=== PATIENT | female | born 1950 | race Two or more races ===

== ENCOUNTER 2017-12-31 18:01 | Inpatient (IN) | payer MEDICARE ==
[2017-12-31] MEDS ORDERED: IPRATROPIUM/ALBUTEROL 0.5-2.5 MG/3 ML AMPUL NEB ONE (18:36)
[2017-12-31] MEDS ORDERED: ASPIRIN 81 MG TABLET, CHEWABLE PO ONE (18:54)
[2017-12-31] MEDS ORDERED: METHYLPREDNISOLONE INJ 125 MG/2 ML SDV IV ONE (18:54)
--- NOTE | 2017-12-31 18:58 | ER Document Report ---
ED Cardiac - General Chief Complaint: Cough Stated Complaint: COUGH Time Seen by Provider: 12/31/17 18:41 Mode of Arrival: Ambulatory Information source: Patient, Relative TRAVEL OUTSIDE OF THE [place] IN LAST 30 DAYS: No - HPI Patient complains to provider of: Shortness of breath Notes: Patient is here with son and [id number] at the bedside. The daughter-in- law has interpreted for the patient. The patient is acceptable of this being done. Patient lives in [place]. She is here visiting her family. They recently returned from a 9 hour flight from [place] about 6 days ago. Since that time the patient has had a cough and felt short of breath and had chest tightness. Patient has a long history of asthma. States that she has had to be admitted to the hospital for asthma in the past. She has been wheezing and coughing. She has felt like she has had a fever, but has not actually taken her temperature. She does complain of some bilateral lower extremity pain but denies any swelling. She denies any hormone use, smoking, cancer, history of DVT or PE. She denies any history of hypertension, high cholesterol, diabetes, drug use, smoking, CAD. The patient denies any other complaints at this time. Nothing seems to make her symptoms better or worse. - Related Data Allergies/Adverse Reactions: No Known Allergies Allergy (Unverified 09/17/14 16:46) Past Medical History - Social History Smoking Status: Never Smoker Family History: Reviewed & Not Pertinent Pulmonary Medical History: Reports: Hx Asthma - severe - Immunizations Hx Diphtheria, Pertussis, Tetanus Vaccination: Yes Review of Systems - Review of Systems -: Yes All other systems reviewed and negative Physical Exam - Vital signs Vitals: Temp Pulse Resp BP Pulse Ox 99.0 F 100 18 151/75 H 91 L 12/31/17 18:08 12/31/17 18:08 12/31/17 18:08 12/31/17 18:08 12/31/17 18:08 - Notes Notes: GENERAL: alert, cooperative, nontoxic, no distress. HEAD: normocephalic, atraumatic EYES: conjunctiva pink without discharge, no external redness or swelling. EARS: no external swelling, no external redness NOSE: atraumatic, no external swelling MOUTH/THROAT: mucous membranes moist and pink, posterior pharynx without erythema, swelling, exudate. No trismus or drooling. NECK: soft, supple, full range of motion, no meningismus. CHEST: no distress, lungs clear and equal throughout. Expiratory wheezing throughout. Good air movement. No crackles. No stridor. No increased work of breathing. CARDIAC: regular rate and rhythm, no murmur, normal capillary refill, normal pulses. No peripheral edema noted. ABDOMEN: Soft, nontender. BACK: full range of motion, no CVA tenderness. EXTREMITIES: full range of motion of all extremities. No redness, no swelling. Mild tenderness to palpation of bilateral calves. No redness, swelling, mass. Normal pulse and sensation distally. NEURO: alert and oriented x 3, no focal deficits, full range of motion of all extremities. PYSCH: appropriate mood, affect. Patient is cooperative. SKIN: pink, warm, dry, no rash. Course - Re-evaluation Re-evalutation: 12/31/17 21:31 Patient is nontoxic appearing with stable vitals. Patient states she is feeling somewhat better at this time. Patient apparently was hypoxic into the upper 80s prior to having [address] nasal cannula. She was satting 96% on 4 L nasal cannula. I have removed her oxygen and we will reassess her O2 level to determine ultimate disposition. Patient continues to have some mild expiratory wheezing throughout. No respiratory distress. 12/31/17 22:26 Patient is nontoxic-appearing with vitals stable aside from times of hypoxia. Patient is noted to occasionally drop down to 85% on room air. She was placed back on 4 L nasal cannula and is satting in the mid 90s. Patient arrived with complaints of cough with shortness of breath and chest tightness. She has no CAD risk factors. She does have a history of asthma. Patient did have a recent flight from [place] which was approximately 9 hours. She was complaining of some pain in her bilateral lower extremities. She had no swelling noted on exam. Patient has no other PE risk factors, she is not have cancer, she is not on hormones, she has had no prior DVT or PE. Venous Doppler of the bilateral lower extremities was negative. D-dimer was negative as well. Chest x-ray shows no acute abnormalities. EKG is negative. Troponin is negative. Patient states that she was feeling better after her breathing treatments but she does continue to have some expiratory wheezing. Due to the fact that the patient continues to be hypoxic when on room air, I believe it would be best for her to be admitted to the hospital for asthma exacerbation to ensure that she is improving and not worsening. Patient was given Solu-Medrol in the emergency department. I will discuss the case with the hospitalist for admission to the hospital. 12/31/17 22:35 Discussed the case with Dr. Ca the overnight hospitalist. He does not believe that the patient needs to be admitted to the hospital at this time based on the vital signs that were charted in the chart. Vital signs in the chart at this time her from her initial triage vital signs. The patient was noted to be hypoxic in the mid 80s on my exam. States that he would like an ABG to be obtained. I HAVE TakEN the patient back off of her oxygen and we will obtain an ABG. 12/31/17 23:[address] Ca with blood gas results showing PO2 of 66. No answer at this time. Will attempt to call back. 12/31/17 23:[address] Ca, he has accepted the patient to a telemetry OBS. - Vital Signs Vital signs: Temp Pulse Resp BP Pulse Ox 98.0 F 91 24 H 134/64 H 89 L 12/31/17 22:47 12/31/17 22:47 12/31/17 22:47 12/31/17 22:47 12/31/17 22:47 - Laboratory Result Diagrams: 12/31/17 19:20 12/31/17 19:20 Laboratory results interpreted by me: 12/31/17 12/31/17 12/31/17 19:20 19:20 23:15 Eosinophils % 6.9 H ABG pO2 66.2 L ABG HCO3 27.7 H ABG Total CO2 29.0 H ABG O2 Saturation 93.4 L Glucose 118 H - Diagnostic Test Radiology reviewed: Image reviewed, Reports reviewed - Negative chest x-ray - EKG Interpretation by Me EKG shows normal: Sinus rhythm, Mathews, Intervals, QRS Complexes, ST-T Waves Rate: Normal When compared to previous EKG there are: Previous EKG unavailable Discharge - Discharge Clinical Impression: Hypoxia Asthma exacerbation Qualifiers: Asthma severity: moderate Asthma persistence: unspecified Qualified Code(s): J45.901 - Unspecified asthma with (acute) exacerbation Dyspnea Qualifiers: Dyspnea type: unspecified Qualified Code(s): R06.00 - Dyspnea, unspecified Condition: Stable Disposition: ADMITTED OBSERVATION Admitting Provider: Hospitalist Unit Admitted: Telemetry
--- NOTE | 2017-12-31 19:18 | RADIOLOGY REPORT (SQ) ---
EXAM DESCRIPTION: CHEST SINGLE VIEW COMPLETED DATE/TIME: 12/31/2017 7:09 pm REASON FOR STUDY: CP, SOB, WHEEZING, HX OF ASTHMA COMPARISON: None. EXAM PARAMETERS: NUMBER OF VIEWS: One view. TECHNIQUE: Single frontal radiographic view of the chest acquired. RADIATION DOSE: NA LIMITATIONS: None. FINDINGS: LUNGS AND PLEURA: No opacities, masses or pneumothorax. No pleural effusion. MEDIASTINUM AND HILAR STRUCTURES: No masses. Contour normal. HEART AND VASCULAR STRUCTURES: Heart normal in size. Normal vasculature. BONES: No acute findings. HARDWARE: None in the chest. OTHER: No other significant finding. IMPRESSION: NO ACUTE RADIOGRAPHIC FINDING IN THE CHEST. TECHNICAL DOCUMENTATION: JOB ID: [id number] [employer]- All Rights Reserved Reading location - IP/workstation name: [email or web address]
[2017-12-31 19:31] LABS: ABSOLUTE BASOPHILS # (AUTO) 0.1 10^3/uL (0.0-0.2); ABSOLUTE EOSINOPHILS # (AUTO) 0.6 10^3/uL (0.0-0.6); ABSOLUTE LYMPHOCYTES (AUTO) 1.8 10^3/uL (0.5-4.7); ABSOLUTE MONOCYTES (AUTO) 0.5 10^3/uL (0.1-1.4); ABSOLUTE NEUT (AUTO) 5.1 10^3/uL (1.7-8.2); BASOPHILS % (AUTO) 0.9 % (0-2); EOSINOPHILS % (AUTO) 6.9 % (0-6); HEMATOCRIT 39.2 % (36.0-47.0); HEMOGLOBIN 13.2 g/dL (12.0-15.5); LYMPHOCYTES % (AUTO) 22.8 % (13-45); MEAN CORPUSCULAR HEMOGLOBIN 29.6 pg (27.0-33.4); MEAN CORPUSCULAR HGB CONC 33.6 g/dL (32.0-36.0); MEAN CORPUSCULAR VOLUME 88 fl (80-97); PLATELET COUNT 247 10^3/uL (150-450); RED BLOOD COUNT 4.46 10^6/uL (3.72-5.28); RED CELL DISTRIBUTION WIDTH 13.9 % (11.5-14.0); SEGMENTED NEUTROPHILS % (AUTO) 63.4 % (42-78); TOTAL CELLS COUNTED % (AUTO) 100 %
[2017-12-31 19:51] LABS: ALANINE AMINOTRANSFERASE 27 U/L (9-52); ALBUMIN 3.9 g/dL (3.5-5.0); ALKALINE PHOSPHATASE 74 U/L (38-126); ANION GAP 11 (5-19); ASPARTATE AMINO TRANSFERASE 21 U/L (14-36); BILIRUBIN,DIRECT 0.2 mg/dL (0.0-0.4); BILIRUBIN,TOTAL 0.2 mg/dL (0.2-1.3); BLOOD UREA NITROGEN 12 mg/dL (7-20); CALCIUM 9.2 mg/dL (8.4-10.2); CARBON DIOXIDE 27 mmol/L (22-30); CHLORIDE 106 mmol/L (98-107); GLUCOSE 118 mg/dL (75-110); POTASSIUM 3.6 mmol/L (3.6-5.0); SODIUM 144.1 mmol/L (137-145); TOTAL PROTEIN 6.9 g/dL (6.3-8.2)
[2017-12-31 20:03] LABS: NT PRO BNP 16 pg/mL (5-900)
[2017-12-31 20:04] LABS: TROPONIN I < 0.012 ng/mL
--- NOTE | 2017-12-31 21:12 | RADIOLOGY REPORT (SQ) ---
EXAM DESCRIPTION: VENOUS BILATERAL LOWER COMPLETED DATE/TIME: 12/31/2017 9:03 pm REASON FOR STUDY: BILA LEG PAIN, RECENT FLIGHT FROM [place] COMPARISON: None. TECHNIQUE: Dynamic and static perez scale and color images acquired of both lower extremity venous sy stems. Selected spectral images acquired with additional compression and augmentation maneuvers. Imag es stored on PACS. LIMITATIONS: None. FINDINGS: RIGHT LEG COMMON FEMORAL AND FEMORAL: Normal phasicity, compression and augmentation. No visualized echogenic m aterial on perez scale. No defects on color images. POPLITEAL: Normal compression and augmentation. No visualized echogenic material on perez scale. No de fects on color images. CALF VESSELS: Normal compression and augmentation. No visualized echogenic material on perez scale. No defects on color image. GSV AND SSV: Normal compression. No visualized echogenic material on perez scale. No defects on color images. ANY DEEP VENOUS INSUFFICIENCY: Not evaluated. ANY EVIDENCE OF POPLITEAL CYST: No. OTHER: No other significant finding. LEFT LEG COMMON FEMORAL AND FEMORAL: Normal phasicity, compression and augmentation. No visualized echogenic m aterial on perez scale. No defects on color images. POPLITEAL: Normal compression and augmentation. No visualized echogenic material on perez scale. No de fects on color images. CALF VESSELS: Normal compression and augmentation. No visualized echogenic material on perez scale. No defects on color images. GSV AND SSV: Normal compression. No visualized echogenic material on perez scale. No defects on color images. ANY DEEP VENOUS INSUFFICIENCY: Not evaluated. ANY EVIDENCE POPLITEAL CYST: No. OTHER: No other significant finding. IMPRESSION: NO EVIDENCE DVT OR SVT IN EITHER LEG. TECHNICAL DOCUMENTATION: JOB ID: [id number] [employer]- All Rights Reserved Reading location - IP/workstation name: [email or web address]
--- NOTE | 2017-12-31 23:26 | EKG REPORT ---
SEVERITY:- OTHERWISE NORMAL ECG - SINUS RHYTHM LEFT AXIS DEVIATION : Confirmed by: Rusty Mathews MD 31-Dec-2017 23:26:06
[2017-12-31 23:37] LABS: ARTERIAL BLOOD BASE EXCESS 2.8 mmol/L; ARTERIAL BLOOD H2CO3 1.31 mmol/L (1.05-1.35); ARTERIAL BLOOD HCO3 27.7 mmol/L (20-26); ARTERIAL BLOOD O2 SATURATION 93.4 % (94-98); ARTERIAL BLOOD PCO2 43.6 mmHg (35-45); ARTERIAL BLOOD PH 7.42 (7.35-7.45); ARTERIAL BLOOD PO2 66.2 mmHg (80-100)
[2017-12-31 23:39] LABS: ARTERIAL BLOOD FIO2 ROOM AIR
[2018-01-01] MEDS ORDERED: ACETAMINOPHEN 325 MG TABLET PO PRN (00:04)
[2018-01-01] MEDS ORDERED: GUAIFENESIN SYRP 200 MG/10 ML UDC PO PRN (00:04)
[2018-01-01] MEDS ORDERED: IPRATROPIUM/ALBUTEROL 0.5-2.5 MG/3 ML AMPUL NEB PRN (00:04)
[2018-01-01] MEDS ORDERED: CHLORPHENIRAMINE MALEATE 4 MG TABLET PO ONE (00:07)
[2018-01-01] MEDS ORDERED: PREDNISONE 20 MG TABLET PO ONE (01:15)
[2018-01-01] MEDS ORDERED: FLUTICASONE NASAL SPRAY 50 MCG/SPRY 120 SPRAY/16 GM NASL ONE (01:15)
[2018-01-01] MEDS ORDERED: LEVOFLOXACIN 750 MG/D5W RTU 750 MG/150 ML RTUPB IV ONE (02:00)
[2018-01-01] MEDS: IPRATROPIUM/ALBUTEROL 0.5-2.5 MG/3 ML AMPUL NEB SCH ×4 (02:16→20:29)
[2018-01-01] MEDS ORDERED: CHLORPHENIRAMINE MALEATE 4 MG TABLET ONE (05:00)
[2018-01-01] MEDS ORDERED: FLUTICASONE NASAL SPRAY 50 MCG/SPRY 120 SPRAY/16 GM ONE (05:00)
[2018-01-01] MEDS: HEPARIN SOD (PORCINE) 5,000 UNIT/ML 1 ML SYRINGE SUBCUT SCH ×3 (05:10→21:54)
--- NOTE | 2018-01-01 06:47 | PDOC H&P ---
History of Present Illness Admission Date/PCP: 01/01/18 00:21 Patient complains of: Shortness of breath History of Present Illness: HIPOLITO REYNOLDS is a Guinean-speaking 67 year old female with history of COPD, chronic allergic sinusitis with recent flare over the last 6 days requiring ER hospitalization where she is found to have hypoxia and a nonproductive cough. She is referred to the hospitalist for admission. She denies fever chills nausea vomiting or chest pain. She denies recent antibiotic use Past Medical History Pulmonary Medical History: Reports: Asthma - severe, Bronchitis Social History Information Source: Patient Lives with: Alone Smoking Status: Never Smoker Frequency of Alcohol Use: None Drugs: None - Advance Directive Resuscitation Status: Full Code Family History Family History: COPD Parental Family History Reviewed: Yes Children Family History Reviewed: Yes Sibling(s) Family History Reviewed.: Yes Medication/Allergy Home Medications: Albuterol Sulfate [Albuterol Sulfate 2.5mg/3 mL] 1 vial IH Q4 PRN 01/01/18 Loratadine 10 mg PO DAILY 01/01/18 Montelukast Sodium 10 mg PO HSP 01/01/18 Allergies/Adverse Reactions: No Known Allergies Allergy (Unverified 09/17/14 16:46) Review of Systems Constitutional: ABSENT: chills, fever(s), headache(s), weight gain, weight loss Eyes: ABSENT: visual disturbances Ears: ABSENT: hearing changes Cardiovascular: ABSENT: chest pain, dyspnea on exertion, edema, orthropnea, palpitations Respiratory: ABSENT: cough, hemoptysis Gastrointestinal: ABSENT: abdominal pain, constipation, diarrhea, hematemesis, hematochezia, nausea, vomiting Genitourinary: ABSENT: dysuria, hematuria Musculoskeletal: ABSENT: joint swelling Integumentary: ABSENT: rash, wounds Neurological: ABSENT: abnormal gait, abnormal speech, confusion, dizziness, focal weakness, syncope Psychiatric: ABSENT: anxiety, depression, homidical ideation, suicidal ideation Endocrine: ABSENT: cold intolerance, heat intolerance, polydipsia, polyuria Hematologic/Lymphatic: ABSENT: easy bleeding, easy bruising Physical Exam Vital Signs: Temp Pulse Resp BP Pulse Ox 97.5 F 99 17 121/67 98 01/01/18 04:34 01/01/18 04:34 01/01/18 04:34 01/01/18 04:34 01/01/18 04:34 Intake & Output 12/30/17 12/31/17 01/01/18 11:59 11:59 11:59 Intake Total 180 Output Total 100 Balance 80 Weight 70.2 kg General appearance: PRESENT: cooperative, mild distress. ABSENT: disheveled Head exam: PRESENT: atraumatic, normocephalic Eye exam: PRESENT: conjunctiva pink, EOMI, PERRLA. ABSENT: scleral icterus Ear exam: PRESENT: normal external ear exam Mouth exam: PRESENT: moist, tongue midline Neck exam: ABSENT: carotid bruit, JVD, lymphadenopathy, thyromegaly Respiratory exam: PRESENT: accessory muscle use, crackles, prolonged expiratory phas, retraction, wheezes Cardiovascular exam: PRESENT: RRR. ABSENT: diastolic murmur, rubs, systolic murmur Pulses: PRESENT: normal dorsalis pedis pul Vascular exam: PRESENT: normal capillary refill GI/Abdominal exam: PRESENT: normal bowel sounds, soft. ABSENT: distended, guarding, mass, organolmegaly, rebound, tenderness Rectal exam: PRESENT: deferred Extremities exam: PRESENT: full ROM. ABSENT: calf tenderness, clubbing, pedal edema Neurological exam: PRESENT: alert, awake, oriented to person, oriented to place , oriented to time, oriented to situation, CN II-XII grossly intact. ABSENT: motor sensory deficit Psychiatric exam: PRESENT: appropriate affect, normal mood. ABSENT: homicidal ideation, suicidal ideation Skin exam: PRESENT: dry, intact, warm. ABSENT: cyanosis, rash Results Impressions: Chest X-Ray 12/31/17 18:54 IMPRESSION: NO ACUTE RADIOGRAPHIC FINDING IN THE CHEST. Venous Doppler Study 12/31/17 18:54 IMPRESSION: NO EVIDENCE DVT OR SVT IN EITHER LEG. Assessment & Plan - Diagnosis (1) Acute exacerbation of chronic bronchitis Is this a current diagnosis for this admission?: Yes Plan: Treatment of allergic sinusitis, empiric antibiotics, prednisone, flutter valve and incentive spirometry (2) Allergic sinusitis Is this a current diagnosis for this admission?: Yes Plan: Chlorpheniramine, Flonase (3) Asthma exacerbation Qualifiers: Asthma severity: moderate Asthma persistence: unspecified Qualified Code( s): J45.901 - Unspecified asthma with (acute) exacerbation Is this a current diagnosis for this admission?: Yes Plan: Please see #1, albuterol and Atrovent, prednisone initiated (4) Hypoxia Is this a current diagnosis for this admission?: Yes Plan: Supplemental oxygen - Time Time Spent: 30 to 50 Minutes
[2018-01-01] MEDS: FLUTICASONE NASAL SPRAY 50 MCG/SPRY 120 SPRAY/16 GM NASL SCH ×2 (10:23→21:54)
[2018-01-01] MEDS: PREDNISONE 20 MG TABLET PO SCH ×2 (10:23→17:34)
--- NOTE | 2018-01-01 13:47 | PDOC PROGRESS REPORT ---
Subjective Progress Note for:: 01/01/18 Subjective:: 67-year-old Nepali-speaking female admitted overnight for COPD exacerbation. Doing better, breathing better. No chest pain no palpitations. No cough or hemoptysis. Reason For Visit: COPD EXACERBATION ACUTE BRONCHITIS Physical Exam Vital Signs: Temp Pulse Resp BP Pulse Ox 97.5 F 80 16 121/53 L 98 01/01/18 07:31 01/01/18 08:00 01/01/18 08:00 01/01/18 07:31 01/01/18 08:00 Intake & Output 12/31/17 01/01/18 01/02/18 06:59 06:59 06:59 Intake Total 180 Output Total 100 Balance 80 Weight 70.2 kg GEN: NAD, well-developed, well-nourished CV: RRR, NL S1S2 LUNGS: Few diffuse wheezing bilaterally, good air movement ABDOMEN Soft, NT, +BS EXTERMITIES: No e/c/c NEURO: Alert, oriented 3, nonfocal Results Impressions: Chest X-Ray 12/31/17 18:54 IMPRESSION: NO ACUTE RADIOGRAPHIC FINDING IN THE CHEST. Venous Doppler Study 12/31/17 18:54 IMPRESSION: NO EVIDENCE DVT OR SVT IN EITHER LEG. Assessment & Plan - Plan Summary Plan Summary: (1) Acute exacerbation of chronic bronchitis Is this a current diagnosis for this admission?: Yes Plan: Continue treatment of allergic sinusitis, empiric antibiotics, prednisone, flutter valve and incentive spirometry (2) Allergic sinusitis Is this a current diagnosis for this admission?: Yes Plan: Continue chlorpheniramine, Flonase (3) Asthma exacerbation Qualifiers: Asthma severity: moderate Asthma persistence: unspecified Qualified Code( s): J45.901 - Unspecified asthma with (acute) exacerbation Is this a current diagnosis for this admission?: Yes Plan: Please see #1, albuterol and Atrovent, prednisone, supplemental O2 as needed (4) Hypoxia Is this a current diagnosis for this admission?: Yes Plan: Supplemental oxygen
[2018-01-01] MEDS: AZITHROMYCIN 250 MG TABLET PO SCH (15:16)
[2018-01-01] MEDS ORDERED: LEVOFLOXACIN 750 MG/D5W RTU 750 MG/150 ML RTUPB IV SCH (22:00)
[2018-01-02] MEDS: IPRATROPIUM/ALBUTEROL 0.5-2.5 MG/3 ML AMPUL NEB SCH ×3 (02:07→14:23)
[2018-01-02 05:12] LABS: ABSOLUTE LYMPHOCYTES (AUTO) 0.7 10^3/uL (0.5-4.7); ABSOLUTE MONOCYTES (AUTO) 0.5 10^3/uL (0.1-1.4); ABSOLUTE NEUT (AUTO) 9.6 10^3/uL (1.7-8.2); HEMATOCRIT 35.4 % (36.0-47.0); HEMOGLOBIN 11.9 g/dL (12.0-15.5); LYMPHOCYTES % (AUTO) 6.6 % (13-45); MEAN CORPUSCULAR HEMOGLOBIN 29.7 pg (27.0-33.4); MEAN CORPUSCULAR HGB CONC 33.5 g/dL (32.0-36.0); MEAN CORPUSCULAR VOLUME 89 fl (80-97); PLATELET COUNT 258 10^3/uL (150-450); RED BLOOD COUNT 3.99 10^6/uL (3.72-5.28); RED CELL DISTRIBUTION WIDTH 13.8 % (11.5-14.0); SEGMENTED NEUTROPHILS % (AUTO) 88.4 % (42-78); TOTAL CELLS COUNTED % (AUTO) 100 %; WHITE BLOOD COUNT 10.9 10^3/uL (4.0-10.5)
[2018-01-02 05:35] LABS: ANION GAP 12 (5-19); BLOOD UREA NITROGEN 20 mg/dL (7-20); CALCIUM 9.2 mg/dL (8.4-10.2); CARBON DIOXIDE 27 mmol/L (22-30); CHLORIDE 106 mmol/L (98-107); GLUCOSE 137 mg/dL (75-110); POTASSIUM 4.5 mmol/L (3.6-5.0); SODIUM 144.9 mmol/L (137-145)
[2018-01-02] MEDS: HEPARIN SOD (PORCINE) 5,000 UNIT/ML 1 ML SYRINGE SUBCUT SCH ×2 (05:45→16:22)
--- NOTE | 2018-01-02 09:42 | Physician Advisory Note ---
Physician Advisor ProgressNote .: Pursuant to the plan for Herb Ruiz, I have reviewed the medical record for this patient. Physician Advisor Statement: Please consider documenting, if you agree: 1. "Acute Exacerbation ___ Asthma" [mild intermittent? or mild/mod/sev persistent?] 2. ? "Acute hypoxemic REsp Failure" ? - ED provider documented "no distress", but H&P states "mild distress, accessory muscle use, retractions, ..." - Hypoxemia is well documented. 3. Medical necessity: if pt can't safely go home today, please state reason(s) : "Not yet hemodynamically stable", or "breathing not back to baseline", or ... ? Status: 67yo Medicare pt with underlying asthma as above, w/severe enough exacerbation of asthma/chronic bronchitis as to have hypoxemia. Documented SOB , PORTILLO, tachypnea, tachycardia, thick green sputum, hypoxemia. Ordered for O2 2L & prn BIpap. Showing recurrent tachycardia since coming in, not hemodynamically stable for d/c before 2MNs. Approp for Inpt status. Thanks! CK
[2018-01-02] MEDS: PREDNISONE 20 MG TABLET PO SCH (10:21)
[2018-01-02] MEDS: FLUTICASONE NASAL SPRAY 50 MCG/SPRY 120 SPRAY/16 GM NASL SCH (10:21)
[2018-01-02] MEDS: AZITHROMYCIN 250 MG TABLET PO SCH (16:30)
[2018-01-02 17:36] VITALS: BP 129/63
--- NOTE | 2018-01-03 16:04 | PDOC DISCHARGE SUMMARY ---
General - Admit/Disc Date/PCP Admission Date/Primary Care Provider: 01/01/18 00:21 Discharge Date: 01/02/18 - Discharge Diagnosis (1) Acute hypoxemic respiratory failure Is this a current diagnosis for this admission?: Yes (2) Acute exacerbation of chronic bronchitis Is this a current diagnosis for this admission?: Yes (3) Asthma exacerbation Is this a current diagnosis for this admission?: Yes - Additional Information Resuscitation Status: Full Code Discharge Diet: As Tolerated Discharge Activity: Activity As Tolerated, Balance Activity w/Rest Prescriptions: Azithromycin [Zithromax 250 mg Tablet] 500 mg PO DAILY@1400 #5 tablet Fluticasone/Salmeterol [Advair 250-50 Diskus 28 dose] 1 inh IH Q12H #1 inhaler Ipratropium/Albuterol Sulfate [Duoneb 3 ml Ampul] 3 ml NEB RTQ6HP PRN 30 Days # 30 vial.neb PRN Reason: Nebulizer [Aeroneb Go Nebulizer] 1 each MC Q6H PRN #1 unit PRN Reason: Prednisone 20 mg PO ASDIR PRN #16 tablet PRN Reason: Home Medications: Albuterol Sulfate [Albuterol Sulfate 2.5mg/3 mL] 1 vial IH RTQ4HP PRN 01/01/18 Albuterol Sulfate [Ventolin HFA MDI 18 GM] 1 puff IH Q4HP PRN 01/01/18 Montelukast Sodium 10 mg PO QHS 01/01/18 Multivitamin [Tab-A-Homer (Multiple Vitamin) Tablet] 1 tab PO DAILY 01/01/18 Azithromycin [Zithromax 250 mg Tablet] 500 mg PO DAILY@1400 #5 tablet 01/02/18 Fluticasone/Salmeterol [Advair 250-50 Diskus 28 dose] 1 inh IH Q12H #1 inhaler 01/02/18 Ipratropium/Albuterol Sulfate [Duoneb 3 ml Ampul] 3 ml NEB RTQ6HP PRN 30 Days # 30 vial.neb 01/02/18 Nebulizer [Aeroneb Go Nebulizer] 1 each MC Q6H PRN #1 unit 01/02/18 Prednisone 20 mg PO ASDIR PRN #16 tablet 01/02/18 History of Present Illness Patient complains of: Shortness of breath History of Present Illness: HIPOLITO REYNOLDS is a Kiswahili-speaking 67 year old female with history of COPD, chronic allergic sinusitis with recent flare over the last 6 days requiring ER hospitalization where she is found to have hypoxia and a nonproductive cough. She is referred to the hospitalist for admission. She denies fever chills nausea vomiting or chest pain. She denies recent antibiotic use Hospital Course Hospital Course: patient was admitted with hypoxemia O2 sat 89-90% on room air She was diagnosed of COPD acute exacerbation; asthmatic bronchitis Chest x-ray was negative for pneumonia she was treated with steroids nebs antibiotics Patient's O2 sat improved dramatically in 24 hours Patient was discharged on azithromycin, steroid taper nebs; at discharge patient's O2 sat is 96% on room air and she has minimal wheezes on physical exam Physical Exam Vital Signs: Temp Pulse Resp BP Pulse Ox 97.5 F 89 16 122/56 L 96 01/02/18 16:35 01/02/18 16:35 01/02/18 16:35 01/02/18 16:35 01/02/18 16:35 Intake & Output 01/02/18 01/03/18 01/04/18 00:59 00:59 00:59 Intake Total 1042 1205 Output Total 100 Balance 942 1205 Weight 70.5 kg General appearance: PRESENT: no acute distress, well-developed, well-nourished Head exam: PRESENT: atraumatic, normocephalic Eye exam: PRESENT: conjunctiva pink, EOMI, PERRLA. ABSENT: scleral icterus Neck exam: ABSENT: carotid bruit, JVD, lymphadenopathy, thyromegaly Respiratory exam: PRESENT: wheezes - Occasional bilaterally Good air entry Cardiovascular exam: PRESENT: RRR. ABSENT: rubs Pulses: PRESENT: normal dorsalis pedis pul Results Laboratory Results: 01/02/18 04:11 01/02/18 04:11 Impressions: Chest X-Ray 12/31/17 18:54 IMPRESSION: NO ACUTE RADIOGRAPHIC FINDING IN THE CHEST. Venous Doppler Study 12/31/17 18:54 IMPRESSION: NO EVIDENCE DVT OR SVT IN EITHER LEG. Qualifiers - * PATIENT BEING DISCHARGED WITH ANY OF THE FOLLOWING DIAGNOSIS: No
== END 2018-01-02 17:35 | disposition home or self-care (01) | DRG 190 ==
LOC: ER 18:01 → OBSVTOIN 01-01 00:21 → INTOOBSV 01-01 00:21 → EH 01-01 00:21 → 5 01-01 02:00 → OBSVTOIN 01-02 10:56
PROVIDERS: ADMIT Internal Medicine; ATTEND Internal Medicine
DX: J44.1 Chronic obstructive pulmonary disease with (acute) exacerbation (principal); J96.01 Acute respiratory failure with hypoxia; J45.41 Moderate persistent asthma with (acute) exacerbation; J30.89 Other allergic rhinitis
CPT/HCPCS: 36415; 36600; 71045; 80048; 80053; 82803; 83880; 84484; 85025; 85379; 93005; 93010; 93970; 94640; 94667; 94668; 94799; 96374; 99285; G0378; J1644; J1956; J2930; J3490; J7512; J7620